=== PATIENT | male | born 1960 | race African-American/Black ===

== ENCOUNTER 2022-01-17 05:20 | Emergency (ER) | payer MEDICAID, OTHER ==
[~2022-01-17] VITALS: Ht 167.6 cm; Wt 69.8 kg
[2022-01-17] MEDS ORDERED: METHYLPREDNISOLONE SOD SUCC 125 MG/2 ML VIAL IV STA (05:38)
[2022-01-17] MEDS ORDERED: ALBUTEROL (0.083%) 2.5MG/3ML NEB HHN STA (05:38)
[2022-01-17] MEDS ORDERED: IPRATROPIUM BROMIDE (0.02%) 0.5MG/2.5ML NEB HHN STA (05:38)
[2022-01-17] MEDS ORDERED: DEXAMETHASONE 4MG TABLET PO ONE (05:45)
[2022-01-17] MEDS: IPRATROPIUM/ALBUTEROL 0.5-3(2.5)MG/3ML NEB HHN SCH ×2 (06:30→06:42)
[2022-01-17] MEDS ORDERED: ALBU6.7H3 INH (07:42)
[2022-01-17 07:59] VITALS: BP 140/68
== END 2022-01-17 08:01 | disposition home or self-care (01) ==
LOC: ER 05:20
DX: R07.89 Other chest pain (principal); R06.2 Wheezing; R06.02 Shortness of breath
CPT/HCPCS: 94640; 99283; J8540; Z7610

== ENCOUNTER 2022-07-31 01:33 | Emergency (ER) | payer OTHER ==
[~2022-07-31] VITALS: Ht 167.6 cm; Wt 68.8 kg
[~2022-07-31 01:33] MED LIST: ALBU6.7H3 INH
[2022-07-31] MEDS ORDERED: HYDROCODONE/ACETAMINOPHEN 5/325MG TABLET PO ONE (02:30)
[2022-07-31 02:54] VITALS: BP 147/87
[2022-07-31] MEDS ORDERED: HYDR-4001 MT (04:53)
[2022-07-31] MEDS ORDERED: IBUP-2028 MT (04:53)
== END 2022-07-31 05:23 | disposition home or self-care (01) ==
LOC: ER 01:46
DX: S42.201A Unspecified fracture of upper end of right humerus, initial encounter for closed fracture (principal); J44.1 Chronic obstructive pulmonary disease with (acute) exacerbation; W18.30XA Fall on same level, unspecified, initial encounter; Y93.89 Activity, other specified; Y92.89 Other specified places as the place of occurrence of the external cause; Y99.8 Other external cause status
CPT/HCPCS: 73030; 73060; 99284; L3670

== ENCOUNTER 2025-04-10 17:21 | Inpatient (IN) | payer MEDICARE, MEDICAID ==
[~2025-04-10] VITALS: Ht 170.2 cm; Wt 66.7 kg
[~2025-04-10 17:21] MED LIST changes: +HYDR-4001 MT; +IBUP-2028 MT
[2025-04-10 17:30] VITALS: O2SAT 98
[2025-04-10] MEDS: MORPHINE SULFATE 4 MG/ML INJ (FOR IV/IM USE) IV ONE ×2 (17:47→20:59)
[2025-04-10] MEDS: METHYLPREDNISOLONE SOD SUCC 125MG/2ML (ACT-O-VIAL) IV ONE (17:47)
[2025-04-10 17:53] LABS: HEMATOCRIT. 32.5 % (42.0-52.0); HEMOGLOBIN. 11.3 g/dL (14.0-18.0); MEAN PLATELET VOLUME 7.9 fl (7.4-10.4); PLATELET 407 x1000/uL (130-400); RED BLOOD CELL COUNT 3.61 mill/uL (4.7-6.1); RED CELL DISTRIBUTION WIDTH 14.1 % (11.6-14.6)
[2025-04-10] MEDS: SODIUM CHLORIDE 0.9% (SEPSIS BOLUS) IV ONE (17:55)
[2025-04-10] MEDS: SODIUM CHLORIDE 0.9% 1,000 ML IV ONE (17:55)
[2025-04-10] MEDS: DIPHENHYDRAMINE 50MG/ML VIAL IV ONE (18:08)
[2025-04-10 18:09] LABS: CREATININE 1.0 mg/dL (0.6-1.3); PROTEIN TOTAL 6.1 g/dL (6.0-8.3); UREA NITROGEN BLOOD 13 mg/dL (9-23)
[2025-04-10 18:10] LABS: ETHANOL BLOOD < 10 mg/dL (<10)
[2025-04-10 18:11] LABS: ASPARTATE AMINOTRANSFERASE 20 IU/L (<34); BILIRUBIN DIRECT 0.1 mg/dL (<=3.0)
[2025-04-10 18:12] LABS: BILIRUBIN TOTAL 0.4 mg/dL (0.1-1.0)
[2025-04-10 18:15] LABS: INR 1.1
[2025-04-10 19:05] LABS: INFLUENZA TYPE A Presumptive Negative (Pres. Neg.); INFLUENZA TYPE B Presumptive Negative (Pres. Neg.)
[2025-04-10 19:06] LABS: RESPIRATORY SYNCYTIAL VIRUS Not Detected (Not Detectd)
[2025-04-10 19:11] LABS: BAND% 4.0 % (1.0-6.0); BASOPHILS % MANUAL 1.0 % (0.0-2.0); EOSINOPHILS % MANUAL 4.0 % (0.0-5.0); LYMPHOCYTES % MANUAL 7.0 % (20.0-50.0); MONOCYTES % MANUAL 14.0 % (2.0-8.0); NEUTROPHILS % MANUAL 70.0 % (45.0-75.0)
[2025-04-10 19:12] LABS: PLATELET ESTIMATE SLIGHTLY INCREASED
[2025-04-10] MEDS ORDERED: MORPHINE SULFATE 2 MG/ML INJ (NOT FOR IM USE) IV PRN (22:15)
[2025-04-10] MEDS ORDERED: SILVER SULFADIAZINE 1% CREAM 50GM TOP SCH (22:15)
[2025-04-10] MEDS ORDERED: IPRATROPIUM/ALBUTEROL 0.5-3(2.5)MG/3ML NEB HHN PRN (22:15)
[2025-04-10] MEDS ORDERED: ACETAMINOPHEN 325MG TABLET PO PRN ×2 (22:15)
[2025-04-10] MEDS ORDERED: GUAIFENESIN 200MG/10ML SUGAR FREE UDC PO PRN (22:15)
[2025-04-10] MEDS ORDERED: ONDANSETRON HCL 4MG/2ML INJ IV PRN (22:15)
[2025-04-10] MEDS ORDERED: DOCUSATE SODIUM 100MG CAPSULE PO PRN (22:15)
[2025-04-10] MEDS ORDERED: NALOXONE HCL 0.4MG/ML VIAL IV PRN (22:45)
[2025-04-10] MEDS: CEFTRIAXONE 2GM/50ML 50 ML IV ONE (22:47)
[2025-04-10] MEDS: SODIUM CHLORIDE 0.9% 1,000 ML IV SCH (22:47)
[2025-04-10] MEDS: PANTOT AC/MIN OIL/PET HY-PHL OINT (AQUAPHOR) TOP SCH (23:00)
[2025-04-10] MEDS: VANCOMYCIN 1.25GM/250ML 250 ML IV NR (23:21)
[2025-04-11] VITALS (48 sets, daily range): BP systolic 35–167; BP diastolic 25–113; PULSE 32–102; RESP 11–47; TEMP 36.6–36.696; O2SAT 77–100
[2025-04-11] MEDS: BLOOD SUGAR DIAGNOSTIC STRIP TEST SCH
[2025-04-11] MEDS: MORPHINE SULFATE 2 MG/ML INJ (NOT FOR IM USE) IV PRN ×3 (00:04→19:22)
[2025-04-11 00:17] LABS: HEMATOCRIT. 29.4 % (42.0-52.0); HEMOGLOBIN. 9.7 g/dL (14.0-18.0); MEAN PLATELET VOLUME 7.6 fl (7.4-10.4); PLATELET 353 x1000/uL (130-400); RED BLOOD CELL COUNT 3.25 mill/uL (4.7-6.1); RED CELL DISTRIBUTION WIDTH 13.9 % (11.6-14.6)
[2025-04-11 00:25] LABS: PHOSPHORUS 2.7 mg/dL (2.5-4.9)
[2025-04-11] MEDS: LACTATED RINGERS 1,000 ML IV SCH (00:32)
[2025-04-11] MEDS: PIPERACILLIN/TAZO 3.375G/50ML 50 ML IV SCH (06:28)
[2025-04-11] MEDS: METHYLPREDNISOLONE SOD SUCC 40MG/ML (ACT-O-VIAL) IV SCH (06:28)
[2025-04-11 07:24] LABS: BASOPHILS % 0.3 % (0.0-2.0); EOSINOPHILS % 0.1 % (0.0-5.0); HEMATOCRIT. 30.5 % (42.0-52.0); HEMOGLOBIN. 10.3 g/dL (14.0-18.0); LYMPHOCYTES % 10.1 % (20.0-50.0); MEAN PLATELET VOLUME 7.7 fl (7.4-10.4); MONOCYTES % 10.0 % (2.0-8.0); NEUTROPHILS % 79.5 % (40.0-76.0); PLATELET 341 x1000/uL (130-400); RED BLOOD CELL COUNT 3.36 mill/uL (4.7-6.1); RED CELL DISTRIBUTION WIDTH 14.1 % (11.6-14.6)
[2025-04-11 07:41] LABS: CLARITY URINE CLEAR (CLEAR); COLOR URINE YELLOW (YELLOW); GLUCOSE URINE NEGATIVE (NEGATIVE); KETONES URINE NEGATIVE (NEGATIVE); LEUKOCYTE ESTERASE URINE NEGATIVE (NEGATIVE); NITRITE URINE NEGATIVE (NEGATIVE); OCCULT BLOOD URINE NEGATIVE (NEGATIVE); PH URINE 6.0 (4.5-8.0); PROTEIN URINE NEGATIVE (NEGATIVE); SPECIFIC GRAVITY URINE 1.008 (1.005-1.030); UROBILINOGEN URINE 1.0 E.U./dL (0.2-1.0)
[2025-04-11 08:07] LABS: TROPONIN I HIGH SENSITIVITY 4 ng/L (3.0-53)
[2025-04-11 08:10] LABS: CREATININE 0.7 mg/dL (0.6-1.3); TRIGLYCERIDE 93 mg/dL (0-150); UREA NITROGEN BLOOD 9 mg/dL (9-23)
[2025-04-11 08:11] LABS: LDL CHOLESTEROL 54 mg/dL (5-100); T4 FREE 1.02 ng/dL (0.89-1.76)
[2025-04-11] MEDS ORDERED: PANTOPRAZOLE SODIUM 40 MG/VIAL IV SCH ×2 (09:00→21:00)
[2025-04-11] MEDS ORDERED: ENOXAPARIN 40MG/0.4ML SYR SUBCUT SCH (09:00)
[2025-04-11] MEDS ORDERED: VANCOMYCIN 750MG/150ML (BAXTER) IV SCH (09:00)
[2025-04-11 10:21] LABS: BAND% 23.0 % (1.0-6.0); LYMPHOCYTES % MANUAL 9.0 % (20.0-50.0); MONOCYTES % MANUAL 4.0 % (2.0-8.0); NEUTROPHILS % MANUAL 64.0 % (45.0-75.0); PLATELET ESTIMATE NORMAL
[2025-04-11] MEDS ORDERED: LORAZEPAM 2MG/ML UD SYRINGE IV PRN (11:00)
[2025-04-11] MEDS: METHYLPREDNISOLONE SOD SUCC 125MG/2ML (ACT-O-VIAL) IV SCH (13:40)
[2025-04-11] MEDS ORDERED: CLONIDINE 0.1MG TABLET PO PRN (13:45)
[2025-04-11] MEDS: CHLORDIAZEPOXIDE 25MG CAPSULE PO SCH (14:01)
[2025-04-11] MEDS: ENOXAPARIN 60MG/0.6ML SYR SUBCUT SCH (14:02)
[2025-04-11] MEDS: VANCOMYCIN 750MG/150ML (BAXTER) IV SCH (14:02)
[2025-04-11] MEDS: AMLODIPINE 5MG TABLET PO SCH (14:02)
[2025-04-11 15:03] LABS: CLARITY URINE TURBID (CLEAR); COLOR URINE YELLOW (YELLOW); GLUCOSE URINE NEGATIVE (NEGATIVE); KETONES URINE NEGATIVE (NEGATIVE); LEUKOCYTE ESTERASE URINE NEGATIVE (NEGATIVE); NITRITE URINE NEGATIVE (NEGATIVE); OCCULT BLOOD URINE 2+ (NEGATIVE); PH URINE 5.5 (4.5-8.0); PROTEIN URINE 1+ (NEGATIVE); SPECIFIC GRAVITY URINE 1.026 (1.005-1.030); UROBILINOGEN URINE 1.0 E.U./dL (0.2-1.0)
[2025-04-11 15:13] LABS: *AMPHETAMINES SCREEN URINE NEGATIVE (NEGATIVE); *BARBITURATES SCREEN URINE NEGATIVE (NEGATIVE); *BENZODIAZEPINES SCREEN URINE NEGATIVE (NEGATIVE); *COCAINE SCREEN URINE PRESUMPTIVE POSITIVE (NEGATIVE); CANNABINOID URINE SCREEN NEGATIVE (NEGATIVE); ECSTASY MDMA SCREEN URINE NEGATIVE (NEGATIVE); METHADONE URINE SCREEN NEGATIVE (NEGATIVE); OPIATES URINE SCREEN PRESUMPTIVE POSITIVE (NEGATIVE); PHENCYCLIDINE URINE SCREEN NEGATIVE (NEGATIVE)
[2025-04-11 15:29] LABS: AMORPHOUS SEDIMENT URINE 2+ /lpf
[2025-04-11 15:30] LABS: RBC URINE 25-50 /hpf (0-2); SQUAMOUS EPITHELIAL CELL URINE NONE SEEN /lpf (RARE/1+)
[2025-04-11 15:31] LABS: BACTERIA URINE 2+
[2025-04-11 15:32] LABS: MUCUS URINE TRACE /lpf (NONE/TRACE); WBC URINE 0-2 /hpf (0-2)
[2025-04-11] MEDS ORDERED: DOPAMINE 400MG/250ML PREMIX 250 ML IV ONE (19:58)
[2025-04-11] MEDS ORDERED: EPINEPHRINE 5 MG in SODIUM CHLORIDE 0.9% 245 ML IV PRN (20:00)
[2025-04-11] MEDS ORDERED: NOREPINEPHRINE 8MG/250ML PMX 250 ML IV PRN (20:00)
[2025-04-11] MEDS ORDERED: VASOPRESSIN 20 UNIT in SODIUM CHLORIDE 0.9% 99 ML IV PRN (20:15)
[2025-04-11] MEDS ORDERED: DOPAMINE 400MG/250ML PREMIX 250 ML IV PRN (20:15)
[2025-04-11] MEDS ORDERED: THIAMINE HCL 100 MG/1 ML 2ML VIAL IV SCH (22:00)
[2025-04-11] MEDS ORDERED: THIAMINE HCL IV SCH (22:00)
[2025-04-11] MEDS ORDERED: SODIUM CHLORIDE 0.9% IV SCH (22:00)
== END 2025-04-11 22:00 | DRG 596 ==
LOC: ER 17:21 → MICUSO 21:00 → EDBEDREQ 04-11 01:14 → EDBEDREQTM 04-11 01:14 → MICUNO 04-11 12:19
PROVIDERS: ADMIT Internal Medicine; ATTEND Internal Medicine
PROC: 5A12012 Performance of Cardiac Output, Single, Manual (ICD-10-PCS; principal; 2025-04-11)
PROC: 0BH17EZ Insertion of Endotracheal Airway into Trachea, Via Natural or Artificial Opening (ICD-10-PCS; 2025-04-11)
DX: L51.1 Stevens-Johnson syndrome (principal); E87.20 Acidosis, unspecified; I82.492 Acute embolism and thrombosis of other specified deep vein of left lower extremity; K76.89 Other specified diseases of liver; D64.9 Anemia, unspecified; J44.89 Other specified chronic obstructive pulmonary disease; D75.838 Other thrombocytosis; F17.210 Nicotine dependence, cigarettes, uncomplicated; Z83.3 Family history of diabetes mellitus; Z87.440 Personal history of urinary (tract) infections; Z88.2 Allergy status to sulfonamides; Z88.3 Allergy status to other anti-infective agents; T50.995A Adverse effect of other drugs, medicaments and biological substances, initial encounter; Y92.89 Other specified places as the place of occurrence of the external cause; K59.89 Other specified functional intestinal disorders
CPT/HCPCS: 31500; 31720; 36415; 71045; 74176; 80048; 80061; 80076; 80305; 80320; 81003; 82550; 82728; 82962; 83036; 83540; 83550; 83605; 83735; 84100; 84145; 84153; 84439; 84443; 84484; 85025; 85379; 85651; 86850; 86900; 87420; 87426; 87804; 92950; 93005; 93970; 94002; 94070; 94664; 96374; 96375; 98960; 99291; 99292; J0696; J1200; J1265; J1650; J2270; J2312; J2543; J2919; J3373; J3411; J7030; J7050; G0480